=== PATIENT | male | born 1960 | race Caucasian/White ===

== ENCOUNTER 2017-08-08 16:36 | Emergency (ER) | payer SELFPAY ==
--- NOTE | 2017-08-08 16:57 | ED Physician Documentation ---
General Adult - HISTORIAN Historian: patient - HPI Stated Complaint: L great toe infection Chief Complaint: General Adult Onset: days ago Timing: still present Severity: moderate Further Comments: yes (Pt is a 57 yo male diabetic, non-compliant with medications with an ulceration to his L great toe. Pt is rx'd Glipizide 2.5 mg po daily, but does not take it daily. Accucheck on presentation was 369. Pt's primary provider is Dr. Jeff.) - ROS CONST: no problems EYES/ENT: none CVS/RESP: none GI/: none MS/SKIN/LYMPH: other (ulceration/inflammation of L great toe; b/l lower extremity varicosities.) - PAST HX Past History: other (DMII) Surgeries/Procedures: none (ortho surgery) Allergies/Adverse Reactions: Allergies Allergy/AdvReac Type Severity Reaction Status Date / Time Penicillins Allergy Verified 08/08/17 17:11 Home Medications: Ambulatory Orders Medication Instructions Recorded Glipizide [Glucotrol Xl] 2.5 mg PO DAILY 08/08/17 - SOCIAL HX Smoking History: non-smoker - FAMILY HX Family History: No (unk) - REVIEWED ASSESSMENTS Nursing Assessment Reviewed: Yes Vitals Reviewed: Yes Progress - Progress Progress: Insulin 8 units SQ in ER Doxycycline 100 mg po q 12 hr x 10 days, 1st dose in ER. Topical Triple abx and dressing applied in ER. D/c instructions It is very important that you follow up with your primary provider for management of your diabetes and for follow up with a nuisance wildlife specialist as at [facility]. Rx Doxycycline 100 mg. Take one every 12 hrs for 10 days. Avoid prolonged sun exposure while taking this medication. Take your diabetes medication as prescribed and follow up with your primary provider. General Adult Physical Exam - PHYSICAL EXAM GENERAL APPEARANCE: no distress EENT: pharynx normal NECK: normal inspection, supple RESPIRATORY: no resp distress, chest non-tender, breath sounds normal CVS: reg rate & rhythm, heart sounds normal BACK: normal inspection SKIN: other (L great toe ulceration with inflammation, mild tenderness) EXTREMITIES: normal range of motion, other (L great toe ulceration with inflammation, mild tenderness; b/l lower extremity varicosities) NEURO: oriented X3, motor nml, sensation nml Discharge Clincal Impression: Diabetic foot ulceration, Hyperglycemia Referrals: Primary Doctor,No [REFERRING] - Condition: Stable Disposition: HOME, SELF-CARE Decision to Admit: NO Decision Time: 17:58
[2017-08-08] MEDS ORDERED: AMOXICILLIN/POT 875/125 1 EACH PO ONE (17:09)
[2017-08-08] MEDS ORDERED: DOXYCYCLINE MONOHYDRATE 100 MG CAPSULE PO ONE (17:11)
[2017-08-08] MEDS ORDERED: INSULIN REGULAR, HUMAN 100 UNIT/ML 3ML VIAL SQ ONE ×2 (17:13→17:21)
[2017-08-08 17:56] VITALS: BP 155/82
== END 2017-08-08 17:53 | disposition home or self-care (01) ==
LOC: ED 16:36
DX: E11.621 Type 2 diabetes mellitus with foot ulcer (principal); E11.65 Type 2 diabetes mellitus with hyperglycemia; L97.529 Non-pressure chronic ulcer of other part of left foot with unspecified severity
CPT/HCPCS: 96372; 99283